=== PATIENT | female | born 1970 | race Caucasian/White ===

== ENCOUNTER 2024-04-04 14:55 | Outpatient (CLI) | payer MEDICAID | END 2024-04-04 23:59 | disposition home or self-care (01) | LOC: MRI 14:55 | PROVIDERS: ATTEND Podiatrist Foot & Ankle Surgery | DX: M19.071 Primary osteoarthritis, right ankle and foot (principal); M79.671 Pain in right foot; M25.471 Effusion, right ankle | CPT/HCPCS: 73721 ==